=== PATIENT | female | born 1950 | race Caucasian/White ===

== ENCOUNTER → 2019-04-19 | Outpatient (CLI) | payer MEDICARE, OTHER ==
--- NOTE | 2019-04-19 11:21 | Diagnostic Imaging Report ---
INDICATION: Neck pain, left greater than right. FINDINGS: There is slight 2 mm grade 1 anterolisthesis of C3 on C4 and retrolisthesis grade 1 of C4 on C5 and C5 on C6. There is advanced [id number] cervical spondylosis with marked disc space narrowing, endplate sclerosis, and osteophytes anteriorly and posteriorly. There is sclerotic hypertrophy and arthrosis of the facets throughout. There are right greater than left carotid arterial atherosclerotic vascular calcifications. IMPRESSION: Extensive degenerative changes and multilevel grade 1 listheses involve the cervical spine. The magnitude of disease would not uncommonly result in spinal stenosis. If there are neurological symptoms present or is otherwise indicated, consider nonemergent outpatient MRI as follow up. Dictated by: Dictated on workstation # [id number]
== END ==
LOC: RAD FS 10:43
PROVIDERS: ATTEND Family Medicine
DX: M47.812 Spondylosis without myelopathy or radiculopathy, cervical region (principal); M43.12 Spondylolisthesis, cervical region; M85.88 Other specified disorders of bone density and structure, other site
CPT/HCPCS: 72040

== ENCOUNTER → 2019-05-01 | Outpatient (CLI) | payer MEDICARE, OTHER ==
--- NOTE | 2019-05-01 11:13 | Diagnostic Imaging Report ---
INDICATION: Postmenopausal female. History of lumbar spine fusion. COMPARISON: None. FINDINGS: AP Spine L1-L4: [BMD (g/cm2): na] [T-Score: na] [Z-Score: na] [BMD Previous: na] [BMD % Change: na] LT Hip Neck: [BMD (g/cm2): 1.162] [T-Score: 0.9] [Z-Score: 2.5] LT Hip Total: [BMD (g/cm2):1.231] [T-Score:1.8] [Z-Score: 3.1] [BMD Previous: na] [BMD % Change: na] RT Hip Neck: [BMD (g/cm2):1.198] [T-Score:1.1] [Z-Score:207] RT Hip Total: [BMD (g/cm2):1.334] [T-score:2.6] [Z-Score:3.9] [BMD Previous:na] [BMD % Change:na] *Indicates significant change from prior examination based on 95% confidence level. World Health Organization criteria for BMD interpretation classify patients as Normal (T-score at or above -1.0), Osteopenic (T-score between -1.0 and -2.5) or Osteoporotic (T-score at or below -2.5). LIMITATIONS AND MODIFICATION: The lumbar spine was not evaluated due to history of fusion. FRACTURE RISK (FRAX SCORE): Not applicable. IMPRESSION: 1. Normal bone mineral density. 2. Baseline examination. 3. See below National Osteopor[employer] Foundation guidelines on when to potentially initiate pharmacologic therapy. Based on the National Osteoporosis Foundation Guidelines, pharmacologic treatment should be initiated in any of the following, unless clinical conditions suggest otherwise: * Any patient with prior fragility fracture of the hip or vertebrae. A spine fracture indicates 5X risk for subsequent spine fracture and 2X risk for subsequent hip fracture. * Osteoporosis (T-score <-2.5). * Postmenopausal women and men age 50 and older with low bone mass/osteopenia (T-score between -1.0 and -2.5) by DXA and 10-year major osteoporotic fracture greater than 20% or a 10-year probability of hip fracture greater than 3%. These fracture risks are supplied above in the FRAX score, if applicable. * Clinician judgement and/or patient preferences may indicate treatment for people with 10-year fracture probabilities above or below these levels. Dictated by: Dictated on workstation # [id number]
== END ==
LOC: RAD 09:23
PROVIDERS: ATTEND Family Medicine
DX: M81.0 Age-related osteoporosis without current pathological fracture (principal); M54.2 Cervicalgia; Z98.1 Arthrodesis status
CPT/HCPCS: 77080

== ENCOUNTER → 2020-01-07 | Outpatient (CLI) | payer MEDICARE, OTHER ==
--- NOTE | 2020-01-07 10:58 | Diagnostic Imaging Report ---
CLINICAL INDICATION: Patient with low back and right hip/upper leg pain and right leg numbness at times. Patient had lumbar spine surgery 3 years ago. EXAM: MRI of the lumbar spine performed without IV contrast. Sagittal T2, sagittal T1, sagittal stir, and axial T2. COMPARISON: None. FINDINGS: L3 through S1 posterior lumbar fusion hardware with appearance of bilateral spanning rods and pedicle screws. There is a metallic disc spacer seen at the L5-S1 level. L5 and S1 laminectomies are seen. There is a small fluid collection in the laminectomy region seen at the L4 and L5 level which measures 0.4 cm x 2.4 cm x 3.5 cm (AP x Trans x CC). This fluid collection causes no mass effect upon the thecal sac or adjacent structures. The visualized portions of the distal thoracic spinal cord, conus medullaris, and cauda equina nerve roots are unremarkable. The conus medullaris tip is seen at the lower L2 vertebral body level. Besides the postop changes, there is no other significant abnormality. There are hypertrophic spurs seen throughout the thoracolumbar spine. T9-T10: There is diffuse disc bulge with moderate loss of disc space height and endplate irregularity. There is bilateral facet arthropathy. There is mild right neuroforaminal narrowing and moderate left neuroforaminal narrowing. There is mild to moderate central canal stenosis. T10-T11: There is a diffuse disc bulge with moderate loss of disc space height and endplate irregularity. There is moderate to severe bilateral facet arthropathy/hypertrophy. There is severe bilateral neuroforaminal narrowing and moderate central canal stenosis. T11-T12: There is a diffuse disc bulge with moderate loss of disc space height. There is mild to moderate bilateral facet arthropathy. There is no significant right neuroforaminal narrowing and mild left neuroforaminal narrowing. There is moderate central canal stenosis. T12-L1: There is subtle grade 1 retrolisthesis of T12 on L1. There is a diffuse disc bulge with moderate loss of disc space height. There is mild to moderate bilateral facet arthropathy. There is mild bilateral neuroforaminal narrowing. There is moderate central canal stenosis. L1-L2: There is a small right paracentral disc bulge and moderate bilateral facet arthropathy. There is no significant central spinal canal or neuroforaminal narrowing. L2-L3: There is grade 1 retrolisthesis of L2 on L3. There is a diffuse disc bulge and moderate to severe loss of disc space height and endplate irregularity. There are Modic type I degenerative signal changes. There is severe bilateral facet arthropathy/hypertrophy. There is severe central canal stenosis and severe bilateral neuroforaminal narrowing. There are degenerative facet effusions bilaterally. L3-L4: There is a diffuse disc bulge and severe bilateral facet arthropathy. There is mild right neuroforaminal narrowing and mild to moderate left neuroforaminal narrowing. There is no significant central canal stenosis. L4-L5: There is grade 1 anterolisthesis of L4 on L5. There is a diffuse disc bulge and moderate loss of disc space height. There is an annular tear involving the posterior aspect of the disc. There is bilateral facet arthropathy/hypertrophy. There is decompression of the thecal sac posteriorly with no significant central canal stenosis. There is severe right neuroforaminal narrowing. The left neuroforaminal region is partially obscured by susceptibility artifact. There is at least mild left neuroforaminal narrowing. L5-S1: There is grade 1 anterolisthesis of L5 on S1. There is severe loss of disc space height. There is bilateral facet arthropathy/hypertrophy. Susceptibility artifact obscures the bilateral neuroforaminal regions. Decompression of the thecal sac posteriorly but no significant central canal stenosis. IMPRESSION: 1. There is L3 through S1 posterior spinal fusion hardware and L4 and L5 laminectomies. Susceptibility hardware artifact limits evaluation of the neural foramen at the L4-L5 and L5-S1 levels. 2. 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 3. There is severe central canal stenosis at the L2-L3 level and severe bilateral neuroforaminal narrowing due to diffuse disc bulges, disc spurs, and facet arthropathy. There is grade 1 retrolisthesis of L2 on L3. 4. There is grade 1 retrolisthesis of T12 on L1, L2 on L3, and grade 1 anterolisthesis of L4 on L5 and L5 on S1. Dictated by: Dictated on workstation # [id number]
== END ==
LOC: RAD 09:30
PROVIDERS: ATTEND Orthopaedic Surgery Orthopaedic Surgery of the Spine
DX: M48.061 Spinal stenosis, lumbar region without neurogenic claudication (principal); M43.17 Spondylolisthesis, lumbosacral region; M51.17 Intervertebral disc disorders with radiculopathy, lumbosacral region; M47.26 Other spondylosis with radiculopathy, lumbar region; M43.15 Spondylolisthesis, thoracolumbar region; M51.25 Other intervertebral disc displacement, thoracolumbar region; M51.35 Other intervertebral disc degeneration, thoracolumbar region; M47.815 Spondylosis without myelopathy or radiculopathy, thoracolumbar region; M48.05 Spinal stenosis, thoracolumbar region; Z98.1 Arthrodesis status; Z98.890 Other specified postprocedural states
CPT/HCPCS: 72148